=== PATIENT | male | born 1945 | race Caucasian/White ===

== ENCOUNTER → 2020-12-13 | Outpatient (REF) | payer BC, OTHER | LOC: M LAB REF 14:04 | PROVIDERS: ATTEND Internal Medicine Nephrology | DX: E83.42 Hypomagnesemia (principal) ==

== ENCOUNTER → 2023-06-12 | Outpatient (REF) | payer MEDICARE, OTHER, BC ==
[~2023-06-12] MED LIST: CENTCHW4 PO; CLOP75TA2 PO; ECOT81TA5 PO; EZET10TA21 PO; FOSI40TA59 PO; GLIM4TAB5 PO; LEVO112T2 PO; METF500T13 PO; OMEGCAP9 PO; PIOG1TAB37 PO; SIMV40TA20 PO; STOO100C30 PO
[2023-06-12 18:13] LABS: FERRITIN 3.7 NG/ML (10.5-307.3)
[2023-06-12 18:18] LABS: FOLATE > 24.0 NG/ML (>5.4); IRON (FE) 26 UG/DL (65-175)
[2023-06-12 18:19] LABS: VITAMIN B12 LEVEL 444 PG/ML (211-911)
[2023-06-12 18:20] LABS: PERCENT SATURATION 6.6 % (19.7-50.0); TOTAL IRON BINDING CAPACITY 394 UG/DL (250-425)
== END ==
LOC: M LAB REF 17:26
PROVIDERS: ATTEND Internal Medicine Nephrology
DX: N18.9 Chronic kidney disease, unspecified (principal); D63.1 Anemia in chronic kidney disease

== ENCOUNTER 2023-07-12 14:58 | Outpatient (CLI) | payer MEDICARE, BC ==
[~2023-07-12] VITALS: Ht 172.7 cm; Wt 82.1 kg
[~2023-07-12 14:58] MED LIST changes: +ALBUTEROL SULFATE 2.5MG/0.5ML INH NEB SOLN INH PRN; -CENTCHW4 PO; -CLOP75TA2 PO; -ECOT81TA5 PO; +EPINEPHrine INJ 1 MG/ML 1ML AMP IM PRN; -EZET10TA21 PO; -FOSI40TA59 PO; -GLIM4TAB5 PO; -LEVO112T2 PO; -METF500T13 PO; +NS 1,000 ML IV SCH; -OMEGCAP9 PO; -PIOG1TAB37 PO; -SIMV40TA20 PO; -STOO100C30 PO; +diphenhydrAMINE 50MG/ML VIAL IV PRN; +methylPREDNISolone 125MG 2ML VIAL IV PRN
[2023-07-12 15:30] VITALS: BP 165/85; O2SAT 98
[2023-07-12] MEDS: IRON SUCROSE 300 MG in NS 250 ML OVER 90 MIN. IV ONE (15:37)
[2023-07-12 17:30] VITALS: BP 156/72; O2SAT 99
[2023-07-12] MEDS ORDERED: LEVO112T2 PO (17:44)
[2023-07-12] MEDS ORDERED: PIOG1TAB37 PO (17:44)
[2023-07-12] MEDS ORDERED: GLIM4TAB5 PO (17:44)
[2023-07-12] MEDS ORDERED: METF500T13 PO (17:44)
[2023-07-12] MEDS ORDERED: SIMV40TA20 PO (17:48)
[2023-07-12] MEDS ORDERED: OMEGCAP9 PO (17:48)
[2023-07-12] MEDS ORDERED: CLOP75TA2 PO (17:48)
[2023-07-12] MEDS ORDERED: CENTCHW4 PO (17:48)
[2023-07-12] MEDS ORDERED: FOSI40TA59 PO (17:48)
[2023-07-12] MEDS ORDERED: STOO100C30 PO (17:48)
[2023-07-12] MEDS ORDERED: ECOT81TA5 PO (17:48)
[2023-07-12] MEDS ORDERED: EZET10TA21 PO (17:48)
== END 2023-07-12 16:55 | disposition home or self-care (01) ==
LOC: M INFU 14:58
PROVIDERS: ATTEND Internal Medicine Nephrology
DX: E61.1 Iron deficiency (principal); Z88.1 Allergy status to other antibiotic agents
CPT/HCPCS: 96365; 96366; J1756

== ENCOUNTER 2023-07-26 12:40 | Outpatient (CLI) | payer MEDICARE, BC, OTHER ==
[~2023-07-26] VITALS: Ht 172.7 cm; Wt 81.0 kg
[2023-07-26 12:40] VITALS: BP 156/75; O2SAT 97
[~2023-07-26 12:40] MED LIST changes: +CENTCHW4 PO; +CLOP75TA2 PO; +ECOT81TA5 PO; +EZET10TA21 PO; +FOSI40TA59 PO; +GLIM4TAB5 PO; +LEVO112T2 PO; +METF500T13 PO; -NS 1,000 ML IV SCH; +OMEGCAP9 PO; +PIOG1TAB37 PO; +SIMV40TA20 PO; +STOO100C30 PO
[2023-07-26] MEDS: IRON SUCROSE 300 MG in NS 250 ML OVER 90 MIN. IV ONE (12:44)
[2023-07-26] MEDS ORDERED: NS 1,000 ML IV SCH (13:00)
[2023-07-26 14:30] VITALS: BP_SYST 138; BP_SYST 144; BP_DIAS 65; BP_DIAS 70; O2SAT 100; O2SAT 76
== END 2023-07-26 14:30 | disposition home or self-care (01) ==
LOC: M INFU 12:40
PROVIDERS: ATTEND Internal Medicine Nephrology
DX: E61.1 Iron deficiency (principal); Z88.1 Allergy status to other antibiotic agents
CPT/HCPCS: 96365; 96366; J1756

== ENCOUNTER 2023-08-09 13:00 | Outpatient (CLI) | payer MEDICARE, BC ==
[~2023-08-09] VITALS: Ht 172.7 cm; Wt 8.0 kg
[2023-08-09 13:00] VITALS: BP 128/62; O2SAT 100
[2023-08-09] MEDS ORDERED: NS 1,000 ML IV SCH (13:30)
[2023-08-09] MEDS: IRON SUCROSE 300 MG in NS 250 ML OVER 90 MIN. IV ONE (13:34)
[2023-08-09 15:11] VITALS: BP 136/65; O2SAT 99
== END 2023-08-09 15:15 ==
LOC: M INFU 13:00
PROVIDERS: ATTEND Internal Medicine Nephrology
DX: E61.1 Iron deficiency (principal); Z88.1 Allergy status to other antibiotic agents
CPT/HCPCS: 96365; 96366; J1756